=== PATIENT | male | born 1955 | race Caucasian/White ===

== ENCOUNTER → 2021-11-01 16:00 | Outpatient (CLI) | payer MEDICARE, SELFPAY | PROVIDERS: Visit Provider Physician Assistant | DX: R05.9 Cough, unspecified (principal); Z20.822 Contact with and (suspected) exposure to COVID-19 | CPT/HCPCS: C9803; U0003; U0005 ==

== ENCOUNTER 2022-03-01 15:06 | Emergency (ER) | payer MEDICARE, SELFPAY ==
[2022-03-01 15:20] VITALS: BP 133/71; PULSE 80; RESP 18; TEMP 36.9; O2SAT 94; BMI 33.3
--- NOTE | 2022-03-01 15:35 | HMH.EDUTC ---
[facility] [place] Clinical Impression: Bronchitis Sinusitis Qualifiers: Sinusitis location: unspecified location Chronicity: unspecified Qualified Code(s): J32.9 - Chronic sinusitis, unspecified Disposition: Home, Self-Care Condition on Discharge: Good Instructions: Sinusitis, DI for Sinusitis, DI for Cough -- Adult, DI for Acute Bronchitis Additional Instructions: ? Start antibiotic today. Be sure to complete entire prescription even if feeling better ? Monitor temp. Tylenol every 4 hours as needed and / or ibuprofen every 6 hours as needed ( As long as your primary care physician has told you that it ok to take both. For fever/aches/pains ER if no less than 101 despite Tylenol or Motrin ? Humidifier/vaporizer or hot steamy shower may help with scratchy throat and ope up sinuses ? Inhaler every 4-6 hours as needed like we discussed. If unsure how to use it, ask pharmacist to demonstrate how. Should help open airways and improve cough, wheezing, and shortness of breath *Tessalon Perles will not cause drowsiness but use at bedtime to help stop cough so that you may get some rest. *Start steroid tomorrow. Helps with inflammation therefore, cough and wheezing. Follow directions on the package. Reviewed side effects. Patient reports taking them before. Follow up IMMEDIATELY for new or worsening of symptoms OR no noticeable improvement over the next 48-72 hours. 911 immediately for any life threatening symptoms such as chest pain or difficulty breathing Prescriptions: Albuterol Sulfate [Proventil-HFA 90mcg/puff Inh] 1 - 2 puffs IH Q6HP PRN #1 each PRN Reason: Shortness Of Breath Transmission Status: Received by [facility] Benzonatate [Benzonatate 100mg cap] 100 mg PO Q8HP PRN #30 cap PRN Reason: Cough Transmission Status: Received by [facility] predniSONE [Prednisone 20mg Tab] 20 mg PO BID 5 Days #10 tab Transmission Status: Received by [facility] Azithromycin [Z-Marco 250mg Tab] 250 mg PO DIRECTED #6 tab Transmission Status: Received by [facility] Referrals: Maxx Clark MD [Primary Care Provider] - As needed Time of Disposition: 16:09 Medical Decision Making - Gary Inquiry Pt receiving controlled substance: No Gary was queried for this patient: No Vital Signs: 03/01/22 15:20 03/01/22 15:59 Temperature 98.4 F 98.4 F Temperature Source Oral Pulse Rate 80 Pulse Rate [Right Brachial] 80 Respiratory Rate 18 18 Blood Pressure 133/71 Blood Pressure [Right Arm] 133/71 Blood Pressure Mean [Right Arm] 91 Blood Pressure Source [Right Arm] Automatic Cuff Blood Pressure Position [Right Arm] Sitting 02 Sat by Pulse Oximetry 94 L Oxygen Delivery Method Room Air Orders (Tests/Meds): ED MEDICATIONS Discontinued Medications Generic Name Dose Route Start Last Admin Trade Name Freq PRN Reason Stop Dose Admin Albuterol/Ipratropium 3 ml 03/01/22 15:44 03/01/22 15:58 Ipratropium/Albuterol 3 Ml Neb IH 03/01/22 15:45 3 ml ONCE ONE Administration Ceftriaxone Sodium 1 gm 03/01/22 15:44 03/01/22 15:55 Ceftriaxone 1gm Vial IM 03/01/22 15:45 1 gm ONCE ONE Administration Lidocaine HCl 0 ml 03/01/22 15:44 03/01/22 15:55 Lidocaine 1% 5ml Pf Vial IM 03/01/22 15:45 2 ml ONCE ONE Administration Methylprednisolone Sodium Succinate 125 mg 03/01/22 15:44 03/01/22 15:55 Methylprednisolone Sod Succ 125mg Vial IM 03/01/22 15:45 125 mg ONCE ONE Administration [facility] [place] - General Stated complaint: sore throat,Cough,SOB Time Seen by Provider: 03/01/22 15:36 Mode of Arrival: Ambulatory Source of Information: Patient Limitations: No Limitations Description of Symptoms (Recalled from Triage Doc. by RN): PATIENT C/O COUGH WITH YELLOW SPUTUM, SORE THROAT, SOA, AND STOPPED UP EARS X 1 WEEK HEENT Symptoms (Recalled from RN notes): Yes Resp Symptoms (Recalled from RN notes): Yes Skin Sympto
[2022-03-01 15:59] VITALS: BP 133/71; PULSE 80; RESP 18; TEMP 36.9; O2SAT 94
== END 2022-03-01 16:19 | disposition home or self-care (01) ==
PROVIDERS: Emergency Provider Nurse Practitioner; PCP Emergency Medicine
DX: J40 Bronchitis, not specified as acute or chronic (principal); J32.9 Chronic sinusitis, unspecified
CPT/HCPCS: 99212; G0463; J0696

== ENCOUNTER → 2022-11-21 11:00 | Outpatient (CLI) | payer MEDICARE, SELFPAY ==
[2022-11-21 19:06] LABS: Basophils # 0.1 K/mm3 (0-0.2); Basophils % 0.6 % (0.1-2.0); Eosinophils # 0.1 K/mm3 (0.0-0.4); Hematocrit 51.5 % (42.0-52.0); Hemoglobin 16.6 g/dL (14.1-18.0); Lymphocytes # 1.7 K/mm3 (0.7-4.5); Lymphocytes % 21.4 % (10-50); Mean Corpuscular HGB Conc 32.2 g/dL (31.8-35.4); Mean Corpuscular Hemoglobin 30.7 pg (27.0-31.2); Mean Corpuscular Volume 95.4 fl (80-94); Monocytes # 0.6 K/mm3 (0.1-1.0); Monocytes % 7.5 % (1.7-9.3); Neutrophils # 5.6 K/mm3 (1.8-7.8); Neutrophils % 69.6 % (37.0-80.0); Platelet Count 239 K/mm3 (142-424); Red Cell Distribution Width 13.9 % (11.5-17.5)
[2022-11-21 19:26] LABS: Alanine Aminotransferase 21 U/L (12-78); Albumin Level 4.1 g/dl (3.5-5.0); Albumin/Globulin Ratio 1.9 (1.1-1.8); Alkaline Phosphatase 55 U/L (38-126); Anion Gap 9.2 mEq/L (5-15); Aspartate Amino Transferase 24 U/L (17-59); Bilirubin,Total 0.5 mg/dl (0.2-1.3); Blood Urea Nitrogen 25 mg/dl (9-20); Calcium 8.5 mg/dl (8.4-10.2); Carbon Dioxide 27 mmol/L (22.0-30.0); Chloride 107 mmol/L (98-107); Chol/HDL Ratio 4.3 (1-3.5); Cholesterol 191 mg/dl (140-200); Estimated Glomerular Filt Rate 40 ml/min (>60); GFR (African American) 49 ML/MIN (>60); Globulin 2.2 g/dL (1.3-3.2); Glucose 114 mg/dl (74-100); HDL Cholesterol 44 mg/dl (40-60); Potassium 4.2 mmoL/L (3.5-5.1); Sodium 139 mmol/L (136-145); Total Protein,Serum 6.3 g/dl (6.3-8.2); Triglycerides 157 mg/dl (30-150); VLDL Cholesterol 31 mg/dL (0-40)
[2022-11-21 19:37] LABS: Direct LDL Cholesterol 130.59 mg/dL (100-129)
[2022-11-21 19:59] LABS: Prostate Specific Ag Screen 0.7 ng/ml (0.0-4.0); Thyroid Stimulating Hormone 1.26 uIU/mL (0.465-4.68)
== END ==
PROVIDERS: PCP Nurse Practitioner Family; Visit Provider Nurse Practitioner Family
DX: I10 Essential (primary) hypertension (principal); Z12.5 Encounter for screening for malignant neoplasm of prostate; Z79.899 Other long term (current) drug therapy
CPT/HCPCS: 80053; 80061; 84443; 85025; G0103

== ENCOUNTER → 2022-12-31 15:14 | Outpatient (CLI) | payer MEDICARE, SELFPAY | PROVIDERS: PCP Emergency Medicine; Visit Provider Nurse Practitioner Family | DX: G47.33 Obstructive sleep apnea (adult) (pediatric) (principal); R06.83 Snoring | CPT/HCPCS: G0399 ==

== ENCOUNTER → 2023-01-09 10:55 | Outpatient (CLI) | payer MEDICARE, SELFPAY ==
--- NOTE | 2023-01-09 11:02 | XR_ITS ---
FINAL REPORT TECHNIQUE: Chest PA & Lateral CLINICAL HISTORY: hypoxemia COMPARISON: None FINDINGS: 2 views of the chest were performed. The heart size is normal. There is a calcified left hilar lymph node. There is no acute cardiopulmonary process. There is scarring in the right mid lung. There are no pleural effusions. There is no pneumothorax. The bony thorax appears intact. IMPRESSION: No acute cardiopulmonary process. Reviewed, Interpreted and Dictated by Harrison Mandujano MD Transcribed by Yancy Connell Authenticated and [facility]
== END ==
PROVIDERS: PCP Emergency Medicine; Visit Provider Nurse Practitioner Family
DX: G47.34 Idiopathic sleep related nonobstructive alveolar hypoventilation (principal); R06.2 Wheezing; Z72.0 Tobacco use
CPT/HCPCS: 71046

== ENCOUNTER → 2023-01-13 09:35 | Outpatient (CLI) | payer MEDICARE, SELFPAY ==
[2023-01-13 10:40] VITALS: PULSE 58; PULSE 64
== END ==
PROVIDERS: PCP Emergency Medicine; Visit Provider Nurse Practitioner Family
DX: G47.34 Idiopathic sleep related nonobstructive alveolar hypoventilation (principal); R06.2 Wheezing; Z72.0 Tobacco use
CPT/HCPCS: 94060; 94618; 94640; 94727; 94729

== ENCOUNTER 2023-03-15 10:46 | Emergency (ER) | payer MEDICARE, SELFPAY ==
[2023-03-15 10:47] VITALS: BP 114/76; PULSE 90; RESP 18; TEMP 36.6; O2SAT 95; BMI 31.8
--- NOTE | 2023-03-15 10:56 | PC.NURSE ---
DR SHANE AT BEDSIDE
[2023-03-15 11:00] VITALS: BP 126/95; PULSE 87; O2SAT 95
--- NOTE | 2023-03-15 11:02 | XR_ITS ---
PROCEDURE INFORMATION: Exam: XR Left Wrist Exam date and time: 03/15/2023 11:01 AM Age: 68 years old Clinical indication: Injury or trauma; Other: Cut with hand saw; Laceration; Left; Injury details: Patient was using a hand saw and it cut the lateral side of his wrist; Additional info: Chainsaw vs L wrist, R/O fb TECHNIQUE: Imaging protocol: Radiologic exam of the left wrist. Views: 3 or more views. COMPARISON: No relevant prior studies available. FINDINGS: Bones/joints: No acute fracture or dislocation. Narrowing of the radiocarpal articulation. Widened scapholunate interval. Soft tissues: Normal. No radiopaque foreign body. IMPRESSION: No acute findings.
--- NOTE | 2023-03-15 11:06 | HMH.EDGENADL ---
Discharge Plan Disposition Patient Disposition: Home, Self-Care Condition: Good Prescriptions Prescriptions: New cefadroxil 500 mg capsule 500 mg PO BID 5 Days Qty: 10 0RF No Action cetirizine [Zyrtec] 10 mg tablet 10 mg PO DAILY Qty: 30 3RF albuterol sulfate 90 mcg/actuation HFA aerosol inhaler 2 puff inhalation Q4-6H PRN (Reason: shortness of breath or wheezing) Qty: 8.5 0RF fluticasone propionate 50 mcg/actuation blister with device 1 inh inhalation BID Anoro Ellipta 62.5-25 mcg/actuation blister with device 1 inh inhalation DAILY 90 Days Qty: 180 3RF fluticasone propionate [Flonase Allergy Relief] 50 mcg/actuation spray,suspension 2 spray intranasal DAILY 90 Days Qty: 16 2RF Rx Instructions: administer into each nostril azelastine 137 mcg (0.1 %) aerosol,spray 2 spray intranasal HS 90 Days Qty: 30 3RF Rx Instructions: administer into each nostril lisinopril-hydrochlorothiazide 20-25 mg tablet See Rx Instructions .ROUTE .COMPLEX Qty: 90 3RF Dose Instruction: TAKE ONE TABLET BY MOUTH ONCE A DAY Rx Instructions: TAKE ONE TABLET BY MOUTH ONCE A DAY Referrals Follow up/Referrals: Maxx Clark MD [Primary Care Provider] - See instructions Activity Restrictions/Add. Instructions Additional Instructions/Restrictions: Take antibiotic twice daily for 5 days to prevent infection. If you have any other concerning signs or symptoms, return to the ER for further evaluation. Return to triage in the emergency department in 7 to 10 days to have stitches removed. Clinical Impressions Clinical Impression: Laceration of left wrist without complication Qualifiers: Encounter type: initial encounter Qualified Code(s): S61.512A - Laceration without foreign body of left wrist, initial encounter Instructions Patient Instructions: DI for Laceration Repair, DI for Suture Removal Discharge ED Provider: Shaji Brasher General Adult HPI General Chief complaint: Wound/Laceration Stated complaint: AO 7/8 LT wrist lac Time Seen by Provider: 03/15/23 10:53 Mode of Arrival: Ambulatory Limitations: No Limitations Description of Symptoms (Recalled from ER Triage Doc. by RN): PT REPORTS USING CHAINSAW CUTTING LIMBS, CHAINSAW SLIPPED AND CUT LEFT WRIST. History of Present Illness HPI narrative: This is a 68-year-old male with history of COPD, SOTO, hypertension presenting with left wrist injury. Patient states that about an hour prior to arrival, he was cutting limbs with a 8 inch bar chainsaw and chainsaw hit him in the medial aspect of his left wrist. Hemostatic after direct pressure. Last tetanus unknown. Sustained no other trauma. Neurovascularly intact without sensation or motor deficits. Related Data Home Medications Medication Instructions Recorded Confirmed fluticasone propionate 50 1 inh inhalation BID 02/05/23 02/27/23 mcg/actuation blister powder for inhalation Previous Rx's Medication Instructions Recorded lisinopril 20 See Rx Instructions .Route 05/15/22 mg-hydrochlorothiazide 25 mg tablet .COMPLEX #90 tabs albuterol sulfate 90 mcg/actuation 2 puff inhalation Q4-6H PRN 10/16/22 aerosol inhaler shortness of breath or wheezing #8.5 grams cetirizine 10 mg tablet (Zyrtec) 10 mg PO DAILY #30 tabs 10/16/22 azelastine 137 mcg (0.1 %) nasal 2 spray intranasal HS 90 days #30 02/05/23 spray aerosol mL fluticasone propionate 50 2 spray intranasal DAILY 90 days 02/05/23 mcg/actuation nasal #16 grams spray,suspension (Flonase Allergy Relief) umeclidinium 62.5 mcg-vilanterol 1 inh inhalation DAILY 90 days 02/05/23 25 mcg/actuation powdr for #180 ea inhalation (Anoro Ellipta) cefadroxil 500 mg capsule 500 mg PO BID 5 days #10 caps 03/15/23 Allergies Allergy/AdvReac Type Severity Reaction Status Date / Time No Known Drug Allergies Allergy Unknown Verified 02/27/23 07:48 [facility] Disclaimer: The information contained in thi
[2023-03-15 11:30] VITALS: BP 100/64; PULSE 80; O2SAT 95
--- NOTE | 2023-03-15 11:47 | PC.NURSE ---
ROUNDED ON PT NOTHING NEEDED AT THIS TIME, VISITOR AT BS
[2023-03-15 12:00] VITALS: BP 100/63; PULSE 65; O2SAT 95
[2023-03-15 12:42] VITALS: BP 100/63; PULSE 80; RESP 18; TEMP 36.6; O2SAT 95
== END 2023-03-15 12:44 | disposition home or self-care (01) ==
PROVIDERS: Emergency Provider Emergency Medicine; PCP Emergency Medicine
DX: S61.512A Laceration without foreign body of left wrist, initial encounter (principal); J44.9 Chronic obstructive pulmonary disease, unspecified; G47.33 Obstructive sleep apnea (adult) (pediatric); I10 Essential (primary) hypertension; L40.9 Psoriasis, unspecified; F17.290 Nicotine dependence, other tobacco product, uncomplicated; W29.3XXA Contact with powered garden and outdoor hand tools and machinery, initial encounter; Z23 Encounter for immunization
CPT/HCPCS: 12002; 73110; 90715; 96372; 99283; 99284

== ENCOUNTER → 2023-04-07 14:26 | Outpatient (CLI) | payer MEDICARE, SELFPAY ==
--- NOTE | 2023-04-07 14:27 | CT_ITS ---
FINAL REPORT CLINICAL HISTORY: lung cancer screening smokes 1 pk per day x 51 yrs FINDINGS: CTDI vol (mGy): 2.90 DLP: 109.[address] images of the chest were obtained using the low-dose protocol for screening. There is no evidence of mediastinal or hilar mass or adenopathy. No axillary mass or adenopathy is identified. On the lung window images, no pulmonary mass or suspicious nodule is identified. There is mild pulmonary scarring. Several calcified granulomas are seen in the left lung. IMPRESSION: Lung RADS category 1 . Recommend 12 month followup low-dose CT for further evaluation. Reviewed, Interpreted and Dictated by Manan Pappas III, MD Transcribed by Ana Cristina Martinez Authenticated and [facility]
== END ==
PROVIDERS: PCP Emergency Medicine; Visit Provider Internal Medicine Pulmonary Disease
DX: Z87.891 Personal history of nicotine dependence (principal); Z12.2 Encounter for screening for malignant neoplasm of respiratory organs
CPT/HCPCS: 71271

== ENCOUNTER 2023-11-12 06:50 | Outpatient (CLI) | payer MEDICARE, SELFPAY ==
--- NOTE | 2023-11-12 06:56 | CT_ITS ---
FINAL REPORT TECHNIQUE: Thin section axial CT images of the facial bones and sinuses were obtained without contrast. Coronal and sagittal reformatted images were also obtained.This study was performed with techniques to keep radiation doses as low as reasonably achievable, (ALARA). Individualized dose reduction techniques using automated exposure control or adjustment of mA and/or kV according to the patient''''s size were employed. CLINICAL HISTORY: sinusitis COMPARISON: None FINDINGS: There is mild mucosal thickening present in multiple sinuses. There are small retention cysts or polyps present in the maxillary sinuses bilaterally. A left kurt bullosa is present. No fluid levels are identified. The ostiomeatal units have an unremarkable appearance. The nasal septum is in the midline. No fracture or acute bony abnormality is identified. IMPRESSION: Mild mucosal thickening in multiple sinuses. Small retention cysts or polyps present in the maxillary sinuses bilaterally. No acute abnormality identified. Reviewed, Interpreted and Dictated by Manan Pappas III, MD Transcribed by Bronwyn Hodge Authenticated and [facility]
== END 2023-11-12 23:59 ==
LOC: RAD 06:51
PROVIDERS: PCP Physician Assistant; Visit Provider Nurse Practitioner
DX: J32.8 Other chronic sinusitis (principal)
CPT/HCPCS: 70486

== ENCOUNTER 2024-04-05 11:20 | Outpatient (CLI) | payer MEDICARE, SELFPAY ==
--- NOTE | 2024-04-05 11:24 | XR_ITS ---
FINAL REPORT CLINICAL HISTORY: cough COMPARISON: 01/09/2023 FINDINGS: PA and lateral views of the chest are obtained. The cardiac and mediastinal silhouettes are within normal limits. The lungs are clear. There is no pleural effusion, pneumothorax, or acute osseous abnormality. IMPRESSION: No radiographic evidence of acute cardiac or pulmonary disease. Reviewed, Interpreted and Dictated by Lola Jones MD Transcribed by Bronwyn Hodge Authenticated and [facility]
[2024-04-05 18:09] LABS: Influenza A, PCR Not Detected (NotDetected); Influenza B, PCR Not Detected (NotDetected)
[2024-04-05 18:51] LABS: Basophils % 0.7 % (0.1-2.0); Eosinophils # 0.1 K/mm3 (0.0-0.4); Eosinophils % 1.5 % (0.1-12.0); Hematocrit 51.5 % (42.0-52.0); Hemoglobin 17.4 g/dL (14.1-18.0); Lymphocytes # 1.3 K/mm3 (0.7-4.5); Lymphocytes % 26.2 % (10-50); Mean Corpuscular HGB Conc 33.7 g/dL (31.8-35.4); Mean Corpuscular Hemoglobin 32.8 pg (27.0-31.2); Mean Corpuscular Volume 97.5 fl (80-94); Mean Platelet Volume 10.3 fl (7.4-10.4); Monocytes # 0.6 K/mm3 (0.1-1.0); Monocytes % 12.5 % (1.7-9.3); Platelet Count 169 K/mm3 (142-424); Red Blood Count 5.28 M/mm3 (4.60-6.20); Red Cell Distribution Width 14.1 % (11.5-17.5)
[2024-04-05 19:09] LABS: Alanine Aminotransferase 20 U/L (12-78); Albumin Level 4.1 g/dl (3.5-5.0); Albumin/Globulin Ratio 1.5 (1.1-1.8); Alkaline Phosphatase 58 U/L (38-126); Anion Gap 13.3 mEq/L (5-15); Aspartate Amino Transferase 24 U/L (17-59); Bilirubin,Total 0.7 mg/dl (0.2-1.3); Blood Urea Nitrogen 26 mg/dl (9-20); Calcium 9.7 mg/dl (8.4-10.2); Carbon Dioxide 25 mmol/L (22.0-30.0); Chloride 101 mmol/L (98-107); Chol/HDL Ratio 5.6 (1-3.5); Cholesterol 213 mg/dl (140-200); Estimated Glomerular Filt Rate 66 ml/min (>60); GFR (African American) 80 ML/MIN (>60); Globulin 2.8 g/dL (1.3-3.2); Glucose 86 mg/dl (74-100); HDL Cholesterol 38 mg/dl (40-60); Potassium 4.3 mmoL/L (3.5-5.1); Sodium 135 mmol/L (136-145); Total Protein,Serum 6.9 g/dl (6.3-8.2); Triglycerides 141 mg/dl (30-150); VLDL Cholesterol 28 mg/dL (0-40)
[2024-04-05 19:20] LABS: Direct LDL Cholesterol 142.53 mg/dL (100-129)
[2024-04-05 19:26] LABS: 25-OH Vitamin D, Total 25.6 ng/mL (30-100)
[2024-04-05 19:41] LABS: Prostate Specific Ag Screen 0.5 ng/ml (0.0-4.0); Thyroid Stimulating Hormone 2.23 uIU/mL (0.465-4.68)
[2024-04-05 20:06] LABS: Coronavirus 19, PCR Detected (NotDetected)
[2024-04-05 20:25] LABS: Hemoglobin A1C 5.6 % (4.0-6.0)
== END 2024-04-05 23:59 | disposition home or self-care (01) ==
LOC: RAD 11:21
PROVIDERS: PCP Family Medicine; Visit Provider Family Medicine
DX: U07.1 COVID-19 (principal); R05.9 Cough, unspecified; R50.9 Fever, unspecified; R07.89 Other chest pain; I10 Essential (primary) hypertension; J44.9 Chronic obstructive pulmonary disease, unspecified; R73.03 Prediabetes; E07.9 Disorder of thyroid, unspecified; E55.9 Vitamin D deficiency, unspecified; E66.9 Obesity, unspecified; Z68.32 Body mass index [BMI] 32.0-32.9, adult; F17.290 Nicotine dependence, other tobacco product, uncomplicated; Z12.5 Encounter for screening for malignant neoplasm of prostate
CPT/HCPCS: 71046; 80050; 80053; 80061; 82306; 83036; 84443; 85025; 87636; G0103

== ENCOUNTER 2024-04-05 16:28 | Outpatient (CLI) | payer MEDICARE, SELFPAY | END 2024-04-05 23:59 | disposition home or self-care (01) | LOC: LAB.DROPOF 04-06 16:29 | PROVIDERS: PCP Family Medicine; Visit Provider Family Medicine | DX: Z02.9 Encounter for administrative examinations, unspecified (principal) ==

== ENCOUNTER 2024-07-14 15:39 | Outpatient (CLI) | payer MEDICARE, SELFPAY ==
[2024-07-14 19:07] LABS: Alanine Aminotransferase 21 U/L (12-78); Albumin/Globulin Ratio 1.8 (1.1-1.8); Alkaline Phosphatase 53 U/L (38-126); Anion Gap 11.3 mEq/L (5-15); Aspartate Amino Transferase 24 U/L (17-59); Bilirubin,Direct 0.4 mg/dl (0.0-0.4); Bilirubin,Indirect 0.3 mg/dL (0.0-0.9); Bilirubin,Total 0.7 mg/dl (0.2-1.3); Bilirubin,Unconjugated 0.3 mg/dL (0.0-1.1); Blood Urea Nitrogen 17 mg/dl (9-20); Calcium 8.8 mg/dl (8.4-10.2); Carbon Dioxide 25 mmol/L (22.0-30.0); Chloride 102 mmol/L (98-107); Cholesterol 163 mg/dl (140-200); Estimated Glomerular Filt Rate 84 ml/min (>60); GFR (African American) 101 ML/MIN (>60); Globulin 2.2 g/dL (1.3-3.2); Glucose 87 mg/dl (74-100); Potassium 4.3 mmoL/L (3.5-5.1); Sodium 134 mmol/L (136-145); Total Protein,Serum 6.2 g/dl (6.3-8.2)
[2024-07-15 10:10] LABS: Cholesterol 162 mg/dl (140-200); Triglycerides 126 mg/dl (30-150); VLDL Cholesterol 25 mg/dL (0-40)
[2024-07-15 10:11] LABS: Chol/HDL Ratio 4.3 (1-3.5); HDL Cholesterol 38 mg/dl (40-60)
[2024-07-15 10:21] LABS: Direct LDL Cholesterol 110.38 mg/dL (100-129)
== END 2024-07-14 23:59 | disposition home or self-care (01) ==
LOC: LAB.DROPOF 07-15 10:34
PROVIDERS: PCP Family Medicine; Visit Provider Family Medicine
DX: E78.5 Hyperlipidemia, unspecified (principal); Z00.00 Encounter for general adult medical examination without abnormal findings; I10 Essential (primary) hypertension
CPT/HCPCS: 80053; 80061; 80076; 82465

== ENCOUNTER 2024-12-16 17:51 | Emergency (ER) | payer MEDICARE, SELFPAY ==
[2024-12-16 18:02] VITALS: BP 121/79; PULSE 95; RESP 16; TEMP 36.6; O2SAT 94; BMI 32.4
[2024-12-16] MEDS: AMOXICILLIN 500MG CAPSULE 1000 MG PO (18:08)
--- NOTE | 2024-12-16 18:48 | ED_ITS ---
Discharge Plan Disposition Patient Disposition: Home, Self-Care Prescriptions Prescriptions: New amoxicillin 875 mg tablet 875 mg PO BID 5 Days Qty: 10 0RF No Action fluticasone propionate [Flonase Allergy Relief] 50 mcg/actuation spray,suspen emery 2 spray intranasal DAILY 90 Days Qty: 16 7RF Rx Instructions: administer into each nostril atorvastatin [Lipitor] 40 mg tablet 40 mg PO DAILY Qty: 90 2RF cetirizine 10 mg tablet See Rx Instructions .ROUTE .COMPLEX Qty: 30 0RF Dose Instruction: TAKE ONE TABLET BY MOUTH ONCE A DAY Rx Instructions: TAKE ONE TABLET BY MOUTH ONCE A DAY lisinopril-hydrochlorothiazide 20-25 mg tablet See Rx Instructions .ROUTE .COMPLEX Qty: 90 1RF Dose Instruction: TAKE ONE TABLET BY MOUTH ONCE A DAY Rx Instructions: TAKE ONE TABLET BY MOUTH ONCE A DAY hydrocortisone [Dermarest Eczema (hydrocort)] 1 % lotion 1 applic topical DAILY PRN (Reason: itching) Qty: 120 3RF Referrals Follow up/Referrals: Doris Valdez APRN [Primary Care Provider] - See instructions Activity Restrictions/Add. Instructions Additional Instructions/Restrictions: Sour candies and warm to hot compresses on the outside of your face to encourage drainage. Amoxicillin twice daily for 5 days. Call your family doctor to establish care for this visit to the emergency department and schedule follow-up within 48 hours to ensure improvement. If you have any worsening of your condition or any other concerning signs or symptoms, return to the emergency department or your primary care doctor for further evaluation. Clinical Impressions Clinical Impression: Salivary duct stones, Acute parotitis Print Language Print Language: Dominican Discharge ED Provider: Shaji Brasher General Adult HPI General Chief complaint: Dental/Oral Stated complaint: Something cought on Inside right jaw Time Seen by Provider: 12/16/24 17:56 Mode of Arrival: Ambulatory Source of Information: Patient Description of Symptoms (Recalled from ER Triage Doc. by RN): patient states his right jaw has been sore the past week today after eating boneless chicken he felt something that felt like it was poking him jaw History of Present Illness HPI narrative: Please note that above description of symptoms, in this electronic medical record under categorization of recalled from ER triage doctor by RN are reflective of an initial nursing assessment, however, is not reflective of my fu ll history and physical exam that was personally taken and clarified. Consequentially, this preceding description of symptoms, which may include the patient's categorized chief complaint in the EMR, do not reflect my personal clinical impression, and the ultimate description of history of present illness and patient stated complaints should be deferred to this section of the note. Unless stated otherwise or congruent with this section of the note, additional signs, symptoms, or incongruence should be interpreted as inaccurate with my clinical impression. Related Data Previous Rx's ?Medication ?Instructions ?Recorded cetirizine 10 mg tablet See Rx Instructions .Route 05/19/23 .COMPLEX #30 tabs atorvastatin 40 mg tablet (Lipitor) 40 mg PO DAILY #90 tabs 07/14/24 fluticasone propionate 50 2 spray intranasal DAILY 90 days 09/22/24 mcg/actuation nasal #16 grams spray,suspension (Flonase Allergy Relief) lisinopril 20 See Rx Instructions .Route 11/15/24 mg-hydrochlorothiazide 25 mg tablet .COMPLEX #90 tabs hydrocortisone 1 % lotion 1 applic topical DAILY PRN itching 12/01/24 (Dermarest Eczema (hydrocortisone)) #120 mL amoxicillin 875 mg tablet 875 mg PO BID 5 days #10 tabs 12/16/24 Allergies Allergy/AdvReac Type Severity Reaction Status Date / Time No Known Drug Allergies Allergy Unknown Verified 10/08/24 10:58 [facility] Disclaimer: The information contained in this section may have been updated after the patient was seen, as this information can be updated by other users. Medical History Epidermal cyst Patient with epidermal cyst mid upper back. Has been present for years. Frequently drains or patient's is able to express fluid. On exam mild surrounding erythema with region of 3 cm diameter circular area of mild erythema/fluctuance. Minimal tenderness to palpation. Approximately quarter inch horizontal incision made over mid aspect of the lesion into the subcu cavity. Significant amount of liquefied purulent serous drainage expressed and some sebaceous debris. Fragments of cyst sac removed with hemostat. Cavity probed. Given local inflammation and purulent drainage, incision was not closed, cavity was packed with quarter inch iodoform gauze tape. Wound covered with sterile dressing and Tegaderm. Patient to leave dressing in place for 3 days and recheck here. anticipate removal of tape gauze. May need repacking again. Colon cancer screening Cough Non-cardiac chest pain Nasal polyp Nasal valve stenosis Deviated nasal septum Hearing loss Chronic sinusitis Shortness of Breath Allergic rhinitis Active follow-up with ENT Restrictive pattern present on pulmonary function testing Encounter for screening for malignant neoplasm of lung Smoking greater than 30 pack years COPD mixed type Active follow-up with pulmonology Dyspnea on exertion Psoriasis Bronchitis Surgical History History of sinus surgery History of knee replacement History of arthroscopy of shoulder Family History Other Cancer Coronary artery disease Stroke Social History Smoking Status: Current every day smoker tobacco type: cigars years smoked: 50 alcohol intake: never substance use type: denies use current occupational status: employed Travel in the last 8 weeks: Inside the [place] household members: spouse housing: house marital status: Have you lived/traveled outside [place] in past 30 days?: No Contact w/someone who lives/traveled outside [place] past 30 days?: No Exposure to someone with infectious disease in past 14 days?: No Do you have a fever (greater than 100.4 F or 38 C)?: No Have you tested positive for COVID-19: No Exposed to someone with COVID-19 in past 14 days?: No Do you have a sore throat?: No Do you have a cough?: No Do you have any weakness?: No Do you have any diarrhea?: No Are you experiencing any unusual bleeding?: No Do you have any muscle aches/pain?: No Do you have any abdominal pain?: No Are you experiencing loss of taste or smell?: No Other Medical History Have you received the Flu Vaccine for this season: No Have you received the Pneumonia Vaccine: No ROS Obtained: Yes All systems reviewed & no additional complaints except as documented Physical Exam General General appearance: alert and in no apparent distress Head Head exam: atraumatic and normocephalic Eye Eye exam: Present normal appearance, PERRL and EOMI ENT ENT exam: Present other (hard FB sticking out of parotid duct R side) Neck Neck exam: Present normal inspection, full ROM and trachea midline Respiratory Respiratory exam: Absent respiratory distress, wheezes, stridor, accessory muscle use or prolonged expiratory phase Cardiovascular Cardiovascular exam: Present other (Pulses equal symmetric in upper and lower extremities) Abdominal Exam Abdominal exam: Present soft; Absent distention, tenderness or pulsatile mass Extremities Exam Extremities exam: Absent edema Neurological Exam Neurological exam: Present alert, oriented X3 and CN II-XII intact; Absent motor sensory deficit Skin Skin exam: Present warm and dry; Absent diaphoresis or erythema Medical Decision Making Medical Records Medical records reviewed: Yes I reviewed the patient's medical records. Screening: Per USPSTF and CDC recommendations, given the prevalence of disease in our region, it is our hospital?s policy to screen for HIV and viral Hepatitis for all patients aged 18 and over and those with ongoing risk factors. Gary Inquiry Pt receiving controlled substance: No Gary was queried for this patient: No Vital Signs: 12/16/24 18:02 Temperature 97.8 F Temperature Source Oral Pulse Rate [Right] 95 H Respiratory Rate 16 Blood Pressure [Right Arm] 121/79 Blood Pressure Mean [Right Arm] 93 Blood Pressure Source [Right Arm] Automatic Cuff Blood Pressure Position [Right Arm] Sitting 02 Sat by Pulse Oximetry 94 L Oxygen Delivery Method Room Air Orders (Tests/Meds): ED MEDICATIONS Discontinued Medications Generic Name Dose Route Start Last Admin Trade Name Freq PRN Reason Stop Dose Admin Amoxicillin 1,000 mg 12/16/24 18:04 12/16/24 18:08 Amoxicillin 500mg Capsule PO 12/16/24 18:05 1,000 mg ONCE ONE Administration Medical Decision Narrative: 69-year-old male presenting with concern for foreign body in his mouth. He states that for the last 2 or 3 weeks he is had swelling on the right side of face, now having a piece of hard substance stick out of the right side of his cheek that he can feel at this time. No fevers or chills, no other acute complaints. History obtained the patient. On arrival, very clinically well and pleasant. He has a hard stone sticking out of his right parotid duct. Tried to express, unable to. Patient was anesthetized with 1% lidocaine and area was blocked. Small incision with 11 blade was made anteriorly. With expression of parotid duct externally, large tonsil stone and copious amounts of purulent material was expressed. Patient feeling much better. Given first dose of jean xicillin here given amount of purulence. Because patient at baseline without signs or symptoms of clinical decompensation, deemed appropriate for discharge. Results were relayed to patient who voiced understanding and were agreeable to outpatient management and follow up. I discussed my clinical impression with patient and answered all questions. At this time, the evidence for any other entities in the differential is insufficient to warrant any further testing or ED observation. This was explained as well. Advisory was given that persistent or worsening symptoms require further evaluation. I confirmed the understanding of this discussion. Wood Scaler disclaimer Much of this encounter note is an electronic bush and vine farmer fruit crops spoken language to printed text. Electronic bush and vine farmer fruit crops of the spoken language may permit errors. Although I have reviewed the note, some errors may still exist. Procedures Foreign Body Removal Time Out Performed: No Site: oral Description of foreign body: other (salivary stone) Sedation/Analgesia: none Technique: manual removal and incision made to facilitate removal Confirmed by:: direct visualization Complications: none Post-procedure exam: awake, alert Critical Care Critical Care Time Critical Care Time: No
[2024-12-16] MEDS: LIDOCAINE 1% 20ML MDV 15 ML IJ (18:54)
[2024-12-16 18:59] VITALS: BP 115/64; PULSE 81; RESP 15; TEMP 36.6; O2SAT 94
== END 2024-12-16 19:00 | disposition home or self-care (01) ==
PROVIDERS: Emergency Provider Emergency Medicine; PCP Family Medicine
DX: K11.21 Acute sialoadenitis (principal)
CPT/HCPCS: 10120; 99283

== ENCOUNTER 2025-03-25 14:57 | Outpatient (CLI) | payer MEDICARE, SELFPAY ==
[2025-03-25 20:10] LABS: Hematocrit 42.6 % (42.0-52.0); Hemoglobin 13.9 g/dL (14.1-18.0); Immature Granulocytes % 0.3 %; Mean Corpuscular HGB Conc 32.6 g/dL (31.8-35.4); Mean Corpuscular Hemoglobin 30.5 pg (27.0-31.2); Mean Corpuscular Volume 93.6 fl (80-94); Nucleated Red Blood Cells % 0 %; Platelet Count 168 K/mm3 (142-424); Red Blood Count 4.55 M/mm3 (4.60-6.20); Red Cell Distribution Width-SD 45.1 fL; White Blood Count 6.8 K/mm3 (4.8-10.8)
[2025-03-25 20:39] LABS: Alanine Aminotransferase 18 U/L (12-78); Albumin Level 4.3 g/dl (3.5-5.0); Albumin/Globulin Ratio 2.3 (1.1-1.8); Alkaline Phosphatase 59 U/L (38-126); Anion Gap 11.7 mEq/L (5-15); Aspartate Amino Transferase 22 U/L (17-59); Bilirubin,Total 0.4 mg/dl (0.2-1.3); Blood Urea Nitrogen 30 mg/dl (9-20); Calcium 9.5 mg/dl (8.4-10.2); Carbon Dioxide 30 mmol/L (22.0-30.0); Chloride 100 mmol/L (98-107); Creatinine,Serum 1.40 mg/dl (0.66-1.25); Estimated Glomerular Filt Rate 50 ml/min (>60); GFR (African American) 61 ML/MIN (>60); Globulin 1.9 g/dL (1.3-3.2); Glucose 83 mg/dl (74-100); Potassium 4.7 mmoL/L (3.5-5.1); Sodium 137 mmol/L (136-145); Total Protein,Serum 6.2 g/dl (6.3-8.2)
--- OUTSIDE RECORDS SUMMARY | 2025-03-28 11:08 | XMS_ITS | CCD ---
Author Organization Unknown Care Team Providers Care Cathode Washer Name Role Phone Unavailable Primary Care Provider Unavailabl e Unavailable Chronic Care Management Unavaila ble Summary Purpose DataExchange Insurance Providers Payer name Policy type / Coverage type Covered democrat ID Effective Begin Date Effective End Date [facility] [id number] Unknown Unknown Family History Family History data not found Medication Administered No Medication Administered data Reason For Visit No Reason For Visit data Medical Equipment No Medical Equipment data Advance Directives No Advance Directive data
--- OUTSIDE RECORDS SUMMARY | 2025-03-28 11:08 | XMS_ITS | CCD ---
Author Organization Unknown Care Team Providers Care Miniature Set Constructor Name Role Phone Unavailable Primary Care Provider Unavailabl e Unavailable Chronic Care Management Unavaila ble Summary Purpose DataExchange Insurance Providers Payer name Policy type / Coverage type Covered democrat ID Effective Begin Date Effective End Date [facility] [id number] Unknown Unknown Family History Family History data not found Medication Administered No Medication Administered data Reason For Visit No Reason For Visit data Medical Equipment No Medical Equipment data Advance Directives No Advance Directive data
== END 2025-03-25 23:59 | disposition home or self-care (01) ==
LOC: LAB.DROPOF 03-28 10:01
PROVIDERS: PCP Family Medicine; Visit Provider Family Medicine
DX: E55.9 Vitamin D deficiency, unspecified (principal); I10 Essential (primary) hypertension
CPT/HCPCS: 80053; 82652; 85025

== ENCOUNTER 2025-05-19 13:38 | Outpatient (CLI) | payer MEDICARE, SELFPAY ==
--- NOTE | 2025-05-19 13:41 | XR_ITS ---
FINAL REPORT CLINICAL HISTORY: Nonspecific cough FINDINGS: PA and lateral views of the chest are obtained. There is no prior exam for comparison. The cardiac and mediastinal silhouettes are within normal limits. The lungs are hyperinflated but otherwise clear. There is no focal infiltrate, effusion, or pneumothorax. IMPRESSION: No radiographic evidence of acute cardiac or pulmonary disease. Reviewed, Interpreted and Dictated by Lola Jones MD Transcribed by Keeley Mcelroy Authenticated and [facility]
== END 2025-05-19 23:59 | disposition home or self-care (01) ==
LOC: RAD 13:39
PROVIDERS: PCP Family Medicine; Visit Provider Family Medicine
DX: R05.9 Cough, unspecified (principal)
CPT/HCPCS: 71046